=== PATIENT | female | born 1955 | race Caucasian/White ===

== ENCOUNTER 2018-11-08 15:51 | Emergency (ER) | payer OTHER ==
[~2018-11-08] VITALS: Ht 157.5 cm; Wt 73.5 kg
[~2018-11-08 15:51] MED LIST: BACTROBAN OINT22 GM TP; SYNTHROID125 MCG; ZITHROMAX500 MG PO
== END 2018-11-08 18:29 | disposition home or self-care (01) ==
LOC: ER 15:51
DX: S63.637A Sprain of interphalangeal joint of left little finger, initial encounter (principal); X50.3XXA Overexertion from repetitive movements, initial encounter; Y93.89 Activity, other specified; Y92.89 Other specified places as the place of occurrence of the external cause; Y99.8 Other external cause status

== ENCOUNTER 2024-07-17 11:31 | Emergency (ER) | payer OTHER ==
[~2024-07-17] VITALS: Ht 157.5 cm; Wt 81.6 kg
[2024-07-17] MEDS ORDERED: TETANUS & DIPHTHERIA TOX,ADULT 0.5 ML VIAL IM ONE (13:15)
[2024-07-17] MEDS ORDERED: TETANUS DIPHTHERIA TOX. ADSOR 5 ML VIAL IM ONE (13:49)
== END 2024-07-17 13:56 | disposition home or self-care (01) ==
LOC: ER 11:34
DX: T24.212A Burn of second degree of left thigh, initial encounter (principal); T79.8XXA Other early complications of trauma, initial encounter; X08.8XXA Exposure to other specified smoke, fire and flames, initial encounter; Y93.89 Activity, other specified; Y92.89 Other specified places as the place of occurrence of the external cause; Y99.8 Other external cause status; R53.81 Other malaise; Z88.5 Allergy status to narcotic agent
CPT/HCPCS: 90471; 90714; J1670

== ENCOUNTER 2024-07-31 20:24 | Emergency (ER) | payer OTHER ==
[~2024-07-31] VITALS: Ht 157.5 cm; Wt 77.1 kg
[2024-07-31] MEDS ORDERED: ROSUVASTATIN CAL5 MG PO (21:15)
[2024-07-31] MEDS ORDERED: TOPROL XL25 M1 (21:15)
[2024-07-31] MEDS ORDERED: COZAAR25 MG PO (21:15)
[2024-07-31] MEDS ORDERED: LAMICTAL25 MG PO (21:16)
[2024-07-31] MEDS ORDERED: XARELTO10 M1 PO (21:16)
[2024-07-31] MEDS ORDERED: HYDRODIURIL12.5 MG PO (21:17)
== END 2024-08-01 01:18 | disposition home or self-care (01) ==
LOC: ER 20:26
DX: S00.93XA Contusion of unspecified part of head, initial encounter (principal); W18.39XA Other fall on same level, initial encounter; Y93.E1 Activity, personal bathing and showering; Y92.012 Bathroom of single-family (private) house as the place of occurrence of the external cause; Y99.9 Unspecified external cause status; I10 Essential (primary) hypertension; Z88.5 Allergy status to narcotic agent; Z88.0 Allergy status to penicillin; Z88.8 Allergy status to other drugs, medicaments and biological substances

== ENCOUNTER 2024-08-25 12:18 | Outpatient (CLI) | payer OTHER ==
[~2024-08-25 12:18] MED LIST changes: +COZAAR25 MG PO; +HYDRODIURIL12.5 MG PO; +LAMICTAL25 MG PO; +ROSUVASTATIN CAL5 MG PO; +TOPROL XL25 M1; +XARELTO10 M1 PO
== END 2024-08-25 12:21 | disposition home or self-care (01) ==
LOC: RAD 12:18
PROVIDERS: ATTEND Orthopaedic Surgery
DX: M25.562 Pain in left knee (principal)